=== PATIENT | female | born 1940 | race Two or more races ===

== ENCOUNTER 2025-09-13 15:12 | Emergency (ER) | payer OTHER ==
[~2025-09-13] VITALS: Ht 157.5 cm; Wt 45.4 kg
[2025-09-13] MEDS ORDERED: MEMANTINE HCL10 MG PO (15:58)
[2025-09-13] MEDS ORDERED: ARICEPT10 MG (15:58)
[2025-09-13] MEDS ORDERED: TRAZODONE HCL50 MG PO (15:59)
[2025-09-13] MEDS ORDERED: CLONAZEPAM0.5 M1 PO (15:59)
[2025-09-13] MEDS ORDERED: TETANUS & DIPHTHERIA TOX,ADULT 0.5 ML VIAL IM ONE (16:00)
[2025-09-13] MEDS ORDERED: CEFTRIAXONE SODIUM 1,000 MG VIAL IM ONE (16:00)
[2025-09-13] MEDS ORDERED: CEFTRIAXONE SODIUM 1,000 MG VIAL ONE (16:25)
[2025-09-13] MEDS ORDERED: DIPHTH,PERTUSS(ACELL),TET VAC 0.5 ML SYRINGE IM ONE (16:26)
[2025-09-13] MEDS ORDERED: LIDOCAINE HCL 1% 10ML VIAL ONE (16:26)
[2025-09-13] MEDS ORDERED: PEPCID AC20 MG PO (17:57)
[2025-09-13] MEDS ORDERED: CEFUROXIME500 MG PO (17:57)
== END 2025-09-13 18:12 | disposition home or self-care (01) ==
LOC: ER 15:13
DX: S01.02XA Laceration with foreign body of scalp, initial encounter (principal); W22.8XXA Striking against or struck by other objects, initial encounter; Y93.89 Activity, other specified; Y92.89 Other specified places as the place of occurrence of the external cause; Z91.018 Allergy to other foods
CPT/HCPCS: 12002; 70450; 90471; 90714; 96372; 99284; J1670

== ENCOUNTER 2025-09-26 15:14 | Emergency (ER) | payer OTHER ==
[~2025-09-26] VITALS: Ht 157.5 cm; Wt 42.6 kg
[~2025-09-26 15:14] MED LIST: ARICEPT10 MG; CEFUROXIME500 MG PO; CLONAZEPAM0.5 M1 PO; MEMANTINE HCL10 MG PO; PEPCID AC20 MG PO; TRAZODONE HCL50 MG PO
== END 2025-09-26 19:32 ==
LOC: ER 15:14
DX: Z48.02 Encounter for removal of sutures (principal); Z91.018 Allergy to other foods